=== PATIENT | female | born 1935 | race African-American/Black ===

== ENCOUNTER 2020-02-06 09:34 | Emergency (ER) ==
[2020-02-06 10:45] LABS: #Basophils 0.1 thou/uL (0.0-0.2); #Lymphocytes 1.3 thou/uL (1.20-3.40); #Monocytes 0.4 thou/uL (0.11-0.59); #Neutrophils 3.5 thou/uL (1.40-6.50); %Eosinophils 0.8 % (0.0-10.0); %Lymphocytes 24.2 % (21.0-51.0); %Monocytes 7.8 % (0.0-10.0); %Neutrophils 66.2 % (42.0-75.0); Hemoglobin 11.6 g/dL (12.0-16.0); Mean Corpuscular HGB CONC 31.9 g/dL (32.0-36.0); Mean Corpuscular Hemoglobin 29.5 pg (27.0-31.0); Mean Corpuscular Volume 92.5 fL (78.0-98.0); Mean Platelet Volume 9.1 fL (7.4-10.4); Platelet Count 231 thou/uL (130-400); RBC Distribution Width 13.3 % (11.5-14.5); Red Blood Cell (RBC) Count 3.93 mill/uL (4.20-5.40); White Blood Cell (WBC) Count 5.3 thou/uL (4.8-10.8)
[2020-02-06 11:10] LABS: ALT (SGPT) 12 U/L (8-55); AST (SGOT) 18 U/L (5-34); Albumin 3.8 g/dL (3.4-4.8); Alkaline Phosphatase 77 U/L (40-110); Anion Gap 15 mmol/L (10-20); BUN (Urea Nitrogen) 29 mg/dL (9.8-20.1); Bilirubin, Total 0.4 mg/dL (0.2-1.2); Calc. Creatinine Clearance 0 mL/min (70-130); Carbon Dioxide 26 mmol/L (23-31); Chloride 99 mmol/L (98-107); Estimated GFR-MDRD 50; Globulin 3.3 g/dL (2.4-3.5); Glucose 111 mg/dL (83-110); Potassium 4.4 mmol/L (3.5-5.1); Protein, Total 7.1 g/dL (6.0-8.3); Sodium 136 mmol/L (136-145)
[2020-02-06 11:13] LABS: Bilirubin Negative (Negative); Blood, Urine Negative (Negative); Clarity Clear (Clear); Glucose, Urine (Dipstick) Normal (Negative); Ketone, Urine Negative (Negative); Leukocyte Negative Leu/uL (Negative); Nitrite Negative (Negative); Protein, Urine (Dipstick) Negative (Neg-Trace); Specific Gravity, Urine 1.006 (1.002-1.036); Urobilinogen Normal mg/dL (Less than 2)
--- NOTE | 2020-02-06 11:46 | CT ---
CT BRAIN WITHOUT CONTRAST: HISTORY:Altered mental status FINDINGS: There are foci of decreased attenuation in the periventricular white matter, consistent with chronic small vessel ischemic disease. No evidence of acute infarct, hemorrhage, midline shift or abnormal extra-axial fluid collections is seen. The ventricular size is appropriate and the basilar cisterns are patent. The bony calvarium is intact. There are calcifications in the optic globes. The visualized paranasal sinuses and mastoid air cells are well aerated. IMPRESSION: No CT evidence of acute intracranial process.
== END 2020-02-06 14:25 | disposition home or self-care (01) ==
LOC: EDBD 09:34 → ERS 09:34
DX: F03.90 Unspecified dementia, unspecified severity, without behavioral disturbance, psychotic disturbance, mood disturbance, and anxiety (principal); R41.82 Altered mental status, unspecified; E11.9 Type 2 diabetes mellitus without complications; I10 Essential (primary) hypertension; E78.5 Hyperlipidemia, unspecified; Z79.84 Long term (current) use of oral hypoglycemic drugs; Z79.82 Long term (current) use of aspirin; Z79.899 Other long term (current) drug therapy
CPT/HCPCS: 36415; 51701; 70450; 80053; 81003; 82140; 85025; 93005; 94760

== ENCOUNTER 2020-05-11 18:18 | Inpatient (IN) | payer MEDICARE, SELFPAY ==
--- NOTE | 2020-05-11 19:14 | RAD ---
XR Chest 1 View Portable History: Altered mental status Comparison: Chest radiograph July 03, 2019 Findings: Relative to the prior examination there appears to be improved aeration of the lingula. Sma ll right effusion. No pneumothorax. Extensive midthoracic spine degenerative changes. Impression: 1. Faint residual opacity within the lingula may reflect scar or recurrent pneumonia. 2. Small right pleural effusion.
[2020-05-11 19:52] LABS: #Lymphocytes 0.8 thou/uL (1.20-3.40); #Monocytes 0.4 thou/uL (0.11-0.59); #Neutrophils 4.6 thou/uL (1.40-6.50); %Lymphocytes 13.2 % (21.0-51.0); %Monocytes 7.1 % (0.0-10.0); %Neutrophils 79.7 % (42.0-75.0); Hemoglobin 12.7 g/dL (12.0-16.0); Mean Corpuscular HGB CONC 30.9 g/dL (32.0-36.0); Mean Corpuscular Hemoglobin 28.7 pg (27.0-31.0); Mean Corpuscular Volume 92.6 fL (78.0-98.0); Mean Platelet Volume 9.9 fL (7.4-10.4); Platelet Count 195 thou/uL (130-400); RBC Distribution Width 13.1 % (11.5-14.5); Red Blood Cell (RBC) Count 4.41 mill/uL (4.20-5.40); White Blood Cell (WBC) Count 5.7 thou/uL (4.8-10.8)
[2020-05-11 19:52] LABS: Bacteria/HPF None Seen HPF (None Seen); Bilirubin Negative (Negative); Blood, Urine Negative (Negative); Clarity Clear (Clear); Glucose, Urine (Dipstick) Greater than 1000 mg/dL (Negative); Ketone, Urine 40 mg/dL (Negative); Leukocyte Negative Leu/uL (Negative); Nitrite Negative (Negative); Protein, Urine (Dipstick) 70 mg/dL (Neg-Trace); RBC/HPF 0-3 HPF (0-3); Specific Gravity, Urine 1.023 (1.002-1.036); Squamous Epithelial 0-3 HPF (0-3); Urobilinogen Normal mg/dL (Less than 2); WBC/HPF 0-3 HPF (0-3)
[2020-05-11 19:57] LABS: INR-International Normal Ratio 0.9; PTT 26.1 sec (22.9-36.1); Prothrombin Time 12.2 sec (12.0-14.7)
[2020-05-11 20:07] LABS: ALT (SGPT) 11 U/L (8-55); AST (SGOT) 18 U/L (5-34); Albumin 3.3 g/dL (3.4-4.8); Alkaline Phosphatase 77 U/L (40-110); Anion Gap 22 mmol/L (10-20); BUN (Urea Nitrogen) 20 mg/dL (9.8-20.1); Bilirubin, Total 0.4 mg/dL (0.2-1.2); CK (CPK) 206 U/L (29-168); Calc. Creatinine Clearance 0 mL/min (70-130); Calcium 8.3 mg/dL (7.8-10.44); Carbon Dioxide 19 mmol/L (23-31); Chloride 93 mmol/L (98-107); Globulin 3.7 g/dL (2.4-3.5); Glucose 479 mg/dL (83-110); Potassium 4.4 mmol/L (3.5-5.1); Sodium 130 mmol/L (136-145)
--- NOTE | 2020-05-11 20:41 | CT ---
CT Brain WO Con History: Altered mental status Comparison: CT brain February 06, 2020 Findings: Abnormally hyperdense globes and calcifications bilaterally. Old right parietal infarct. No acute hemorrhage or infarct. No midline shift or mass effect. Impression: Chronic findings. No acute intracranial abnormality.
[2020-05-11] MEDS ORDERED: Insulin Regular 300 UNITS/3 ML VIAL ONE (20:51)
[2020-05-11 21:43] LABS: SARS-CoV-2 NAA Rapid Test DETECTED (NotDetected)
--- NOTE | 2020-05-11 22:14 | PDOC.FPRHP ---
- History of Present Illness Chief Complaint: AMS History of Present Illness: This is an 84yo F with PMH of dementia, DM2, HTN, HLD, blindness who presents to the ER today due to AMS. The patient started having AMS about 3 days ago. She has also had diarrhea over th elast few a days. She has a positive COVID exposure as many family members have tested positive. At baseline, she does normally know where she is and what day it is. She denies chest pain, SOB, numbness, tingling, weakness, NV, abdominal pain, fever, cough or other symptoms at this time. The above was obtained through ER record. Patient not able to give me much more information. Per niece - she got patient up around 12. She ate chicken noodle soup at that time. They laid her down to nap. She went to check on her at 5pm and she had explosive diarrhea. No blood in BM. She is not normally incontinent and can tell you when she needs to go to the bathroom. Both niece and her are positive for COVID. She has not had a fever. She has had decreased appetite over the last week. She gave her 12 u of levemir at 12:30 and at 5:30 gave her 10 more. She normally takes levemir 8u qAM, 8u qPM and if elevated at bedtime she will get 3u of novolog. She has not had a glucose over 400 if many years. She also takes metformin BID. She is normally axox2-3. She said that she did seem more confused today and she was having to repeat her questions more and more today than usual. She will sometimes have a "dementia episode" where she is "mean, mean mean." She takes seroquel at night which has helped this. Niece is taking that she may need to go to a facility for care. Reports weight loss over the last couple months. Niece is MPOA. ED Course: 6units novolin, NS 2000ml bolus - Allergies/Adverse Reactions Allergies Allergy/AdvReac Type Severity Reaction Status Date / Time No Known Allergies Allergy Verified 05/12/20 04:47 - History PMHx: DM2, HTN, HLD, legally blind , dementia PSHx: UTO 02/06/20, eye surgery FHx: DM, HTN; father - prostate cancer; Brother - CKD on dialysis, DM Social: lives at home with niece/nephew, no tobacco use - she did chewing tobacco, but quit about 5 years ago; does not drink alcohol, no drug use - Review of Systems ROS unobtainable: other (per niece, unable to get ROS from patient) General: reports: fatigue. denies: fever/chills, weight/appetite/sleep changes, night sweats Eyes: denies: eye pain, vision changes ENT: denies: nasal congestion, rhinorrhea Respiratory: denies: cough, congestion, shortness of breath Cardiovascular: denies: chest pain, palpitation, edema Gastrointestinal: reports: diarrhea. denies: nausea, vomiting, constipation, abdominal pain, GI bleeding Genitourinary: denies: dysuria Skin: denies: rashes, lesions Musculoskeletal: denies: pain, tenderness, swelling Neurological: reports: weakness - Vital signs BP: 158/63, Pulse: 75, Resp: 16, Temp: 98.2 (Oral), Pain: 0, O2 sat: 95 on (Room Air), Time: 05/11/2020 22:11. Weight 40kg BP: 158/86, Pulse: 85, Resp: 17, Temp: 98.1 (Oral), Pain: 0, O2 sat: 95 on (Room Air), Time: 05/11/2020 18:31. - Physical Exam Constitutional: NAD -Constitutional: frail, elderly AA F HEENT: normocephalic and atraumatic, no scleral icterus, MMM (MM mildly dry) -HEENT: legally blind, cloudy corneas b/l, poor dentition - dentures present, gum or some substance in the mouth Neck: supple, FROM, trachea midline, no LAD Chest: no-tender to palpation, no lesions Heart: RRR, normal S1/S2, no murmurs/rubs/gallops Lungs: CTAB, no respiratory distress, no rales/rhonchi, no wheezing, no retractions -Lungs: poor effort Abdomen: soft, non-tender, bowel sounds present, no masses/distention Musculoskeletal: normal structure Neurological: no focal deficit -Neurological: GCS of 14. Unable to fully assess, will not fully cooperate with neuro exam Skin: no rash/lesions -Skin: decreased skin turgor and delayed cap refill mildly Heme/Lymphatic: no unusual bruising or bleeding, no purpura, no petechia -Psychiatric: Axox1 - to person only, she was slow to responds to questions, requires redi recting as well FMR H&P: Results - Labs Result Diagrams: 05/12/20 06:09 05/12/20 06:09 Lab results: WBC 5.7 thou/uL (4.8-10.8) 05/11/20 19:40 Hgb 12.7 g/dL (12.0-16.0) 05/11/20 19:40 Hct 40.9 % (36.0-47.0) 05/11/20 19:40 MCV 92.6 fL (78.0-98.0) 05/11/20 19:40 Plt Count 195 thou/uL (130-400) 05/11/20 19:40 Neutrophils % 79.7 % (42.0-75.0) H 05/11/20 19:40 Sodium 130 mmol/L (136-145) L 05/11/20 19:40 Potassium 4.4 mmol/L (3.5-5.1) 05/11/20 19:40 Chloride 93 mmol/L (98-107) L 05/11/20 19:40 Carbon Dioxide 19 mmol/L (23-31) L 05/11/20 19:40 BUN 20 mg/dL (9.8-20.1) 05/11/20 19:40 Creatinine 1.18 mg/dL (0.6-1.1) H 05/11/20 19:40 Glucose 479 mg/dL (83-110) H 05/11/20 19:40 Calcium 8.3 mg/dL (7.8-10.44) 05/11/20 19:40 Total Bilirubin 0.4 mg/dL (0.2-1.2) 05/11/20 19:40 AST 18 U/L (5-34) 05/11/20 19:40 ALT 11 U/L (8-55) 05/11/20 19:40 Alkaline Phosphatase 77 U/L (40-110) 05/11/20 19:40 Creatine Kinase 206 U/L (29-168) H 05/11/20 19:40 Serum Total Protein 7.0 g/dL (6.0-8.3) 05/11/20 19:40 Albumin 3.3 g/dL (3.4-4.8) L 05/11/20 19:40 Urine Ketones 40 mg/dL (Negative) A 05/11/20 19:22 Urine Blood Negative (Negative) 05/11/20 19:22 Urine Nitrite Negative (Negative) 05/11/20 19:22 Ur Leukocyte Esterase Negative Kyra/uL (Negative) 05/11/20 19:22 Urine RBC 0-3 HPF (0-3) 05/11/20 19:22 Urine WBC 0-3 HPF (0-3) 05/11/20 19:22 Ur Squamous Epith Cells 0-3 HPF (0-3) 05/11/20 19:22 Urine Bacteria None Seen HPF (None Seen) 05/11/20 19:22 - Radiology Interpretation CT scan - head Status: report reviewed by me (chronic findings - old right parietal infarct, hyperdense globes and calcifications bilaterally. NO acute intracranial abnormality.) Chest x-ray Status: report reviewed by me (faint residual opacity within the lingula that might be scar or recurrent PNA; small right pleural effusion) FMR H&P: A/P - Plan Metabolic acidosis 2/2 acute diarrhea Bicarb 19, Gap of 18. Hx of diarrhea over last couple of days. - Will repeat BMP - Can consider stool studies, but likely diarrhea due to COVID. If it persists can consider stool studies. Will hold metformin for not so as to not exacerbate the diarrhea. - Will give IVF Uncontrolled DM2 with hyperglycemia Glucose 479 -> 344. Gap of 18 ->16. Given 6units of insulin and NS in the ER. A1c of 8.5. - BHB pending, VBG pending. - Will continue to mod SS. Will get q2hr glucose until better controlled. COVID PNA Satting well on RA currently. Pos rapid test. WBC nml, L 0.8. - Other COVID labs pending. Will not trend as patient doing well now, but can trend these labs if she decompensates. - Procal 0.38 - will start azithro - Will continue to monitor VS, tylenol PRN for fever. Does not qualify for any therapies as she is doing well resp-armstrong for now. Patient definitely has the potential to decompensate due to co-morbidities and overall poor health. - Precautions in place Encephalopathy - unsure etiology or if even markedly different from baseline Per niece, patient has dementia and is axox 2 at baseline. Patient was axox1 but had difficulty answering questions during exam. - Possibly encephalopathic due to the above diagnoses. No indication of toxins or medication related encephalopathy. Infectious etiology of COVID. UA neg. Dehydration from diarrhea and decreased appetite. CT brain neg for acute p rocess. No hx of seizure per niece. Na corrects to normal, normal k, low bicarb and chloride. Elevated glucose. LINO present but resolved now. Will continue to monitor mental status. Hyponatremia Na 130 -> correction for hyperglycemia = 136 - nml. HLD - aware, will monitor, continue home meds HTN - aware, continue home meds, monitor VS Dementia - aware, baseline is axox2. Appears at baseline or slightly below. Will continue to monitor. Will frequently orient. Continue home meds. Will also consult CM and palliative care. Family would like senior care placement. Dispo: admit to med, obs PCP: MALATHI Murray Diet: HH/CC Code: DNAR Case discussed with Dr. Serna Addendum - Attending - Attending Attestation Date/Time: 05/11/20 [id number] I personally evaluated the patient and discussed the management with Dr. Costa I agree with the History, Examination, Assessment and Plan documented above with any addition or exceptions noted below. 84 yo female with poorly controlled DM and Dementia now presents with worsening cognitive state and COVID19 infection. Patient less responsive. Unable to answer questions. Dehydrated. Not eating or drinking. Bowel and urinary incontinence. Frequent loose stools. Symptoms present for 3 days. Lives and is cared for by positive COVID19 family members. - Admit to COVID unit. No need for respiratory support at this time. Will trend labs. Treat symptoms. Diarrhea associated with disease state. Treat as needed with prn meds. - Infiltrate on CXR. Procal pending. Will likely add antibiotics. Risk for aspi ration due to age, mental status, and comorbidities. Will monitor closely. - Metabolic encephalopathy. Etiology related to infection and dehydration. Due to underlying dementia very sensitive to changes. Will treat and continue to monitor. Would benefit from sitter to help re-orient but due to COVID not possible. - Demenita. Would hold antipsychotic at this time due to mental state. Was placed due to combative and abussive behavior during periods at home. Patient unable to take care of herself. Needs SNF placement. - Metabolic acidosis. Multi-factorial - dehydration and hypovolemia, hyperglycemia with risk for ketosis, poor intake with increased base towards ketosis. Will correct with IVFs and insulin at this time. Monitor. No significant gap. Will need to follow up with family to discuss care plans. Patient is DNR. Krishna
[2020-05-11] MEDS ORDERED: Bisacodyl 5 MG TAB PO PRN (22:15)
[2020-05-11] MEDS ORDERED: Acetaminophen 650 MG Suppository PR PRN (22:15)
[2020-05-11] MEDS ORDERED: Senokot S 8.6-50 MG TAB PO PRN (22:15)
[2020-05-11] MEDS ORDERED: Bisacodyl 10 MG SUPP PR PRN (22:15)
[2020-05-11] MEDS ORDERED: Calcium Carbonate 500 MG ChewTAB PO PRN (22:15)
[2020-05-11] MEDS ORDERED: Ondansetron PF 4 MG/2 ML Vial IVP PRN (22:15)
[2020-05-11] MEDS ORDERED: Ondansetron ODT 4 MG TAB PO PRN (22:15)
[2020-05-11] MEDS ORDERED: Acetaminophen 325 MG TAB PO PRN (22:15)
[2020-05-12 00:16] LABS: Hemoglobin A1c 8.5 % (4.0-6.0)
[2020-05-12 00:18] LABS: Anion Gap 20 mmol/L (10-20); BUN (Urea Nitrogen) 21 mg/dL (9.8-20.1); Carbon Dioxide 20 mmol/L (23-31); Chloride 97 mmol/L (98-107); Sodium 133 mmol/L (136-145)
[2020-05-12 00:19] LABS: CRP (Inflammatory) 15.04 mg/dL (= or < 0.5); Calc. Creatinine Clearance 0 mL/min (70-130); Calcium 7.9 mg/dL (7.8-10.44); Glucose 365 mg/dL (83-110)
[2020-05-12] MEDS ORDERED: Dextrose 5% in Water 1,000 ML IV PRN (00:26)
[2020-05-12] MEDS ORDERED: Dextrose 50% Abboject 50 ML SYRINGE SLOW IVP PRN (00:26)
[2020-05-12] MEDS: HumaLOG 300 UNITS/3 ML VIAL SC PRN ×2 (01:52→14:43)
[2020-05-12] MEDS: Lactated Ringer's 1,000 ML IV SCH ×2 (01:52→10:42)
[2020-05-12 01:58] LABS: Amphetamine Not Detected (NotDetected); Barbiturates Screen Not Detected (NotDetected); Benzodiazepine Screen Not Detected (NotDetected); Cocaine Metabolite Screen Not Detected (NotDetected); Medtox Control Line Valid? VALID (VALID); Medtox Reader # READER 1; Methadone Not Detected (NotDetected); Methamphetamine Not Detected (NotDetected); Opiate Screen Not Detected (NotDetected); Oxycodone Screen Not Detected (NotDetected); Phencyclidine (PCP) Not Detected (NotDetected); THC/Cannabinoid Screen Not Detected (NotDetected); Tricyclic Screen Not Detected (NotDetected)
[2020-05-12] MEDS ORDERED: Azithromycin 250 MG TAB PO SCH (02:00)
[2020-05-12 04:48] VITALS: BMI 19.7
[2020-05-12 06:17] LABS: Actual Bicarbonate (HCO3v) 22 mEq/L (22-28); Base Excess 1.4 mEq/L (-2.0 to +3.0); Calcium, Ionized (venous) 0.84 mmol/L (1.16-1.32); Chloride (VBG) 100 mmol/L (98-106); Hemoglobin (Hb) 12.8 g/dL (11.7-16.1); Potassium (VBG) 3.85 mmol/L (3.70-5.30); Sodium 128.3 mmol/L (133-146); pH (venous) 7.58 (7.32-7.43)
[2020-05-12 06:38] LABS: #Lymphocytes 0.8 thou/uL (1.20-3.40); #Monocytes 0.4 thou/uL (0.11-0.59); #Neutrophils 3.6 thou/uL (1.40-6.50); %Basophils 0.3 % (0.0-1.0); %Lymphocytes 16.6 % (21.0-51.0); Hemoglobin 11.7 g/dL (12.0-16.0); Mean Corpuscular HGB CONC 31.9 g/dL (32.0-36.0); Mean Corpuscular Hemoglobin 29.1 pg (27.0-31.0); Mean Corpuscular Volume 91.2 fL (78.0-98.0); Mean Platelet Volume 9.3 fL (7.4-10.4); Platelet Count 227 thou/uL (130-400); RBC Distribution Width 13.2 % (11.5-14.5); Red Blood Cell (RBC) Count 4.03 mill/uL (4.20-5.40); White Blood Cell (WBC) Count 4.8 thou/uL (4.8-10.8)
[2020-05-12 06:49] LABS: Lactic Acid 2.1 mmol/L (0.5-2.2)
[2020-05-12 06:52] LABS: Anion Gap 17 mmol/L (10-20); BUN (Urea Nitrogen) 14 mg/dL (9.8-20.1); Calc. Creatinine Clearance 45 mL/min (70-130); Carbon Dioxide 21 mmol/L (23-31); Chloride 99 mmol/L (98-107); Glucose 197 mg/dL (83-110); Potassium 3.9 mmol/L (3.5-5.1); Sodium 133 mmol/L (136-145)
--- NOTE | 2020-05-12 08:34 | PDOC.FM ---
- Subjective Subjective: Patient feeling well and very pleasant. She is AxO x1. Denies pain. Resting comfortably. - Objective MAR Reviewed: Yes Vital Signs & Weight: Vital Signs (12 hours) Temp Pulse Resp BP Pulse Ox 05/12/20 04:00 99.8 F H 81 16 159/71 H 93 L 05/12/20 01:33 97.6 F 81 18 155/70 H 98 Weight Weight 48.988 kg I&O: 05/11/20 05/12/20 05/13/20 06:59 06:59 06:59 Intake Total 900 Balance 900 Result Diagrams: 05/12/20 06:09 05/12/20 06:09 Phys Exam - Physical Examination Constitutional: NAD Respiratory: no wheezing, clear to auscultation bilateral Cardiovascular: RRR Gastrointestinal: soft, non-tender, no distention Musculoskeletal: no edema Psychiatric: normal affect Dx/Plan - Plan Plan: Metabolic acidosis 2/2 acute diarrhea - stool studies today Uncontrolled DM2 with hyperglycemia - space out labs and glucose checks, home meds COVID + infection - diarrhea may be due to covid - continue oral hydration - airborne/contact precautions Encephalopathy - resolved - likely dementia and is at baseline HLD HTN - monitor, continue home meds Dementia - aware, baseline is axox2. Dispo: med, obs. Will also consult CM and palliative care. Family would like shelter placement. PCP: MALATHI Murray Diet: HH/ALEXANDRA Code: DNAR Addendum - Attending - Attending Attestation Date/Time: 05/12/20 0087 I personally evaluated the patient and discussed the management with Dr. Mancuso. I agree with the History, Examination, Assessment and Plan documented above with any addition or exceptions noted below. Patient here with suspected AMS and hypovolemia from diarrhea, possibly due to COVID. Continue supportive care, obtain stool studies. Labs improved from admission. CXR and vitals show no evidence of COVID respiratory complications at this time.
[2020-05-12] MEDS: Amlodipine 10 MG TAB PO SCH (08:39)
[2020-05-12] MEDS: Heparin 5,000 UNITS/ML VIAL SC SCH ×3 (08:40→21:30)
[2020-05-12] MEDS: Folic Acid 1 MG TAB PO SCH (08:40)
[2020-05-12] MEDS: Cholecalciferol 1,000 UNITS (25 MCG) TAB PO SCH (08:40)
[2020-05-12] MEDS: Losartan 25 MG TAB PO SCH (08:40)
[2020-05-12] MEDS: Calcium Carbonate 600 MG + Vit D TAB PO SCH (08:40)
[2020-05-12] MEDS: Aspirin 81 mg Enteric Coated Tablet PO SCH (08:40)
[2020-05-12] MEDS ORDERED: FLU VACC QS2020-21(65YR UP)/PF 240 MCG/0.7 ML SYRINGE IM ONE (09:00)
[2020-05-12] MEDS: Atorvastatin Calcium 40 MG TAB PO SCH (21:30)
--- NOTE | 2020-05-13 05:51 | PDOC.FM ---
- Subjective Subjective: Patient says, "I'm feeling so good this morning. Praise God!" She has not had a BM so stool studies have been unable to be collected. Otherwise, no acute events overnight. Pt denies pain. - Objective MAR Reviewed: Yes Vital Signs & Weight: Vital Signs (12 hours) Temp Pulse Resp BP Pulse Ox 05/12/20 20:00 97.8 F 87 18 158/73 H 95 Weight Weight 48.988 kg I&O: 05/11/20 05/12/20 05/13/20 06:59 06:59 06:59 Intake Total 900 1075 Balance 900 1075 Result Diagrams: 05/13/20 08:34 05/13/20 08:34 Phys Exam - Physical Examination Constitutional: NAD Respiratory: no wheezing, clear to auscultation bilateral Cardiovascular: RRR, no significant murmur Gastrointestinal: soft, non-tender, no distention Musculoskeletal: no edema Psychiatric: normal affect Dx/Plan - Plan Plan: Metabolic acidosis 2/2 acute diarrhea, resolved - stool studies ordered, however diarrhea is now resolved. - may have been due to Covid. Monitor, and if recurs, collect stool studies - continue to monitor hydration status Uncontrolled DM2 with hyperglycemia, improved - continue home meds - last A1C at 8.5% - accuchecks ACHS COVID + infection - continue oral hydration - airborne/contact precautions - no respiratory symptoms; if develops, add steroids and inflammatory markers. Encephalopathy - resolved - has dementia and is at baseline HLD HTN - monitor, continue home meds Dementia - aware, baseline is axox2. Dispo: med, obs. CM working on placement; however, this may prove difficult as facilities are no longer accepting new covid positive patients at this time. Continue discussions with family and CM. We will begin PT/OT here while we wait for placement. PCP: MALATHI Murray Diet: HH/CC Code: DNAR Addendum - Attending - Attending Attestation Date/Time: 05/13/20 0753 I personally evaluated the patient and discussed the management with Dr. Mancuso. I agree with the History, Examination, Assessment and Plan documented above with any addition or exceptions noted below. Patient overall stable. Labs improved, diarrhea improved. Per family, they are u nable to care for her any longer so she will likely be prolonged hospitalization awaiting placement.
[2020-05-13] MEDS: Heparin 5,000 UNITS/ML VIAL SC SCH ×3 (08:04→20:52)
[2020-05-13] MEDS: Folic Acid 1 MG TAB PO SCH (08:05)
[2020-05-13] MEDS: Cholecalciferol 1,000 UNITS (25 MCG) TAB PO SCH (08:05)
[2020-05-13] MEDS: Calcium Carbonate 600 MG + Vit D TAB PO SCH (08:05)
[2020-05-13] MEDS: metFORMIN 500 MG TAB PO SCH ×3 (08:05→17:58)
[2020-05-13] MEDS: Aspirin 81 mg Enteric Coated Tablet PO SCH (08:05)
[2020-05-13] MEDS: Amlodipine 10 MG TAB PO SCH (08:09)
[2020-05-13] MEDS ORDERED: Azithromycin 250 MG TAB PO SCH (09:00)
[2020-05-13] MEDS: Losartan 25 MG TAB PO SCH (09:23)
[2020-05-13 09:31] LABS: #Lymphocytes 0.8 thou/uL (1.20-3.40); #Monocytes 0.3 thou/uL (0.11-0.59); #Neutrophils 3.8 thou/uL (1.40-6.50); %Eosinophils 0.2 % (0.0-10.0); %Lymphocytes 16.3 % (21.0-51.0); %Monocytes 5.6 % (0.0-10.0); Anion Gap 19 mmol/L (10-20); BUN (Urea Nitrogen) 9 mg/dL (9.8-20.1); Calc. Creatinine Clearance 45 mL/min (70-130); Calcium 8.4 mg/dL (7.8-10.44); Carbon Dioxide 23 mmol/L (23-31); Chloride 94 mmol/L (98-107); Glucose 237 mg/dL (83-110); Hemoglobin 12.7 g/dL (12.0-16.0); Mean Corpuscular HGB CONC 31.4 g/dL (32.0-36.0); Mean Corpuscular Hemoglobin 28.2 pg (27.0-31.0); Mean Corpuscular Volume 89.9 fL (78.0-98.0); Mean Platelet Volume 10.1 fL (7.4-10.4); Platelet Count 248 thou/uL (130-400); Potassium 3.4 mmol/L (3.5-5.1); Sodium 133 mmol/L (136-145); White Blood Cell (WBC) Count 4.8 thou/uL (4.8-10.8)
[2020-05-13] MEDS ORDERED: Potassium Chloride 20 MEQ TAB PO SCH (10:30)
[2020-05-13] MEDS: HumaLOG 300 UNITS/3 ML VIAL SC PRN ×2 (11:15→21:12)
--- NOTE | 2020-05-13 11:46 | PDOC.PALCO ---
Palliative Care Consult - Consult Details Requesting Physician: Dr Costa Reason for Consult: goals of care, family support - Pertinent HPI 84 year old female who has a known history of dementia, DM II, blindness, declining functional status. Assist for ADL's. Increase in altered mental status 3 days prior to presentation to the emergency room.She has a known positive COVID exposure in the private home setting. Sudden onset of explosive diarrhea. Secondary to both primary caregivers being Covid + patient was sent to the hospital for further evaluation. Negative for fever. Admitted for further evaluation. Niece/MPOA further relayed that patient has intermittent episodes of agitation/aggression. Seroquel initiated and has mitigated. History further indicated increase in poor appetite/intake. Previously oriented x2 - Pertinent PMH DM 2, HDL, HTN, Legally blind, dementia - Social History Smoking Status: Never smoker (Previously "dipped"" quit 5 year ago) Alcohol Use: none Drug Use History: none Living Situation: with family/parents, other (Lives with neice and nephew) - Medications MAR Reviewed: Yes - Allergies Allergies/Adverse Reactions: Allergies Allergy/AdvReac Type Severity Reaction Status Date / Time No Known Allergies Allergy Verified 05/12/20 04:47 - Subjective Entered room, patient sleeping. Assessment, patient states "praise the lord" multiple times, however is not oriented or able to participate in conversation or assessment. - ROS Non Response: due to mental status - Objective Vital Signs: Vital Signs - Most Recent Temp Pulse Resp BP Pulse Ox 98.3 F 86 16 154/79 H 95 05/13/20 09:28 05/13/20 09:28 05/13/20 09:28 05/13/20 09:28 05/13/20 09:58 Palliative Performance Scale: 30 - Physical Exam Constitutional: cachectic, confusion, ill appearing HEENT: moist MMs Deviation from normal: blind Respiratory: no wheezing, unlabored breathing Cardiovascular: RRR Gastrointestinal: soft, non-tender, positive bowel sounds Musculoskeletal: no edema, diffuse muscle atrophy Neurology: no focal deficits Skin: cap refill <2 seconds Deviation from normal: Dry Deviation from normal: Appears oriented to self - Problem List (1) Metabolic acidosis Code(s): E87.2 - ACIDOSIS Current Visit: Yes Status: Acute (2) COVID-19 Code(s): U07.1 - COVID-19 Current Visit: Yes Status: Acute (3) Palliative care encounter Code(s): Z51.5 - ENCOUNTER FOR PALLIATIVE CARE Current Visit: Yes Status: Acute (4) Dementia Code(s): F03.90 - UNSPECIFIED DEMENTIA WITHOUT BEHAVIORAL DISTURBANCE Current Visit: Yes Status: Acute (5) Declining functional status Code(s): R53.81 - OTHER MALAISE Current Visit: Yes Status: Acute - Plan/Recommendations Plan: Family unable to care for patient currently in home setting, requesting transition to skilled facility. CM attempting to secure a facility that is accepting Covid + patients. Haritha Hauser, who was acting MPOA is requesting to appoint surrogate decision making to one of the patients nephews. Secondary to currently no documentation designating Haritha as MPOA Palliative Care is attempting to gain a consensus of family to designate a surrogate decision maker. After Surrogate decision maker identified Palliative Care will sign off as Goal of Care met and family with adequate support. Please also refer to Palliative Care notes in note section. [45] minutes spent on this encounter with >50% of the time in counseling and coordination of care. Thank you for this very appropriate consult.
[2020-05-13] MEDS: Atorvastatin Calcium 40 MG TAB PO SCH (20:53)
--- NOTE | 2020-05-14 06:26 | PDOC.FM ---
- Subjective Subjective: Spoke with kunal Mg yesterday who said pt started having Covid symptoms on 05/11, on the day of admission. The primary symptom was explosive diarrhea. No acute events overnight. Patient says she ate yesterday but cannot remember what she ate. She is AxO x1 this morning. - Objective MAR Reviewed: Yes Vital Signs & Weight: Vital Signs (12 hours) Temp Pulse Resp BP Pulse Ox 05/14/20 04:00 98.1 F 80 18 107/56 L 94 L 05/14/20 00:00 118/67 05/13/20 20:00 99.2 F 87 17 132/64 95 Weight Weight 48.988 kg I&O: 05/12/20 05/13/20 05/14/20 06:59 06:59 06:59 Intake Total 900 1075 240 Balance 900 1075 240 Result Diagrams: 05/13/20 08:34 05/14/20 06:14 Phys Exam - Physical Examination Constitutional: NAD Respiratory: no wheezing, clear to auscultation bilateral Cardiovascular: RRR, no significant murmur Gastrointestinal: soft, non-tender Musculoskeletal: no edema, pulses present Psychiatric: normal affect (AxO x1) Dx/Plan - Plan Plan: General deconditioning - PT/OT recommend SNU, patient is max assist w/ ADLs - Awaiting placement - added glucerna shakes TID after meals for patient's nutrition COVID + infection - continue oral hydration - airborne/contact precautions - no respiratory symptoms; if develops, add steroids and inflammatory markers. - 1st day of symptoms = 05/11. Continue precautions for 10 days (05/21). Uncontrolled DM2 with hyperglycemia, improved - continue home meds: metformin restarted yesterday - last A1C at 8.5% - accuchecks ACHS - changed diet to CC 1800 kcal/day Encephalopathy - resolved Metabolic acidosis 2/2 acute diarrhea, resolved HLD HTN - monitor, continue home meds Dementia - aware, baseline is axo x2. Dispo: med, inpatient. CM working on placement; however, this may prove difficult as facilities are no longer accepting new covid positive patients at this time. PCP: MALATHI Murray Diet: CC, Supp glucerna shakes TID-PC Code: JAVY Addendum - Attending - Attending Attestation Date/Time: 05/14/20 1042 I personally evaluated the patient and discussed the management with Dr. Vinita rushing. I agree with the History, Examination, Assessment and Plan documented above with any addition or exceptions noted below. Patient stable. She has some lab evidence of volume depletion, will give gentle IVF. Working on placement as family feels unable to care for her any longer. No respiratory effects of COVID at this time, diarrhea resolved.
[2020-05-14 07:26] LABS: Anion Gap 17 mmol/L (10-20); BUN (Urea Nitrogen) 23 mg/dL (9.8-20.1); Calc. Creatinine Clearance 21 mL/min (70-130); Calcium 7.7 mg/dL (7.8-10.44); Carbon Dioxide 22 mmol/L (23-31); Chloride 96 mmol/L (98-107); Glucose 318 mg/dL (83-110); Potassium 4.6 mmol/L (3.5-5.1); Sodium 130 mmol/L (136-145)
[2020-05-14] MEDS: Folic Acid 1 MG TAB PO SCH (08:02)
[2020-05-14] MEDS: Losartan 25 MG TAB PO SCH (08:03)
[2020-05-14] MEDS: Cholecalciferol 1,000 UNITS (25 MCG) TAB PO SCH (08:03)
[2020-05-14] MEDS: metFORMIN 500 MG TAB PO SCH ×2 (08:03→15:54)
[2020-05-14] MEDS: Aspirin 81 mg Enteric Coated Tablet PO SCH (08:03)
[2020-05-14] MEDS: Heparin 5,000 UNITS/ML VIAL SC SCH ×3 (08:03→21:50)
[2020-05-14] MEDS: Calcium Carbonate 600 MG + Vit D TAB PO SCH (08:03)
[2020-05-14] MEDS: Amlodipine 10 MG TAB PO SCH (09:43)
[2020-05-14] MEDS: Lactated Ringer's 1,000 ML IV SCH (11:08)
[2020-05-14] MEDS: HumaLOG 300 UNITS/3 ML VIAL SC PRN ×2 (11:14→15:54)
[2020-05-14] MEDS: Atorvastatin Calcium 40 MG TAB PO SCH (21:50)
[2020-05-15] MEDS: Lactated Ringer's 1,000 ML IV SCH
--- NOTE | 2020-05-15 06:23 | PDOC.FM ---
- Subjective Subjective: Patient only eating 25% of meals or refusing meals at all. Drank 25% of glucerna shake at lunch yesterday. Did not work w/ PT yesterday. Denies pain this AM. - Objective MAR Reviewed: Yes Vital Signs & Weight: Vital Signs (12 hours) Temp Pulse Resp BP Pulse Ox 05/14/20 20:00 98.5 F 76 18 122/67 91 L Weight Weight 48.988 kg I&O: 05/13/20 05/14/20 05/15/20 06:59 06:59 06:59 Intake Total 1075 240 840 Balance 1075 240 840 Result Diagrams: 05/13/20 08:34 05/15/20 05:52 Phys Exam - Physical Examination Constitutional: NAD Respiratory: no wheezing, clear to auscultation bilateral Cardiovascular: RRR, no significant murmur Gastrointestinal: no distention Musculoskeletal: no edema Deviation from normal: AxO x1 Dx/Plan - Plan Plan: General deconditioning - PT/OT recommend SNU, patient is max assist w/ ADLs - Awaiting placement LINO 2/2 poor oral intake - continue gentle IVF today. - strict I/Os COVID + infection - continue oral hydration - airborne/contact precautions - no respiratory symptoms; if develops, add steroids and inflammatory markers. - 1st day of symptoms = 05/11. Continue precautions for 10 days (05/21). Uncontrolled DM2 with hyperglycemia, improved - continue home meds: metformin restarted yesterday - last A1C at 8.5% - accuchecks ACHS Encephalopathy - resolved Metabolic acidosis 2/2 acute diarrhea, resolved HLD HTN - monitor, continue home meds Dementia - aware, baseline is axo x2. Dispo: med, inpatient. CM working on placement; however, this may prove difficult as facilities are no longer accepting new covid positive patients at t his time. PCP: MALATHI Murray Diet: CC, Supp glucerna shakes TID-PC Code: DNAR Addendum - Attending - Attending Attestation Date/Time: 05/15/20 8460 I personally evaluated the patient and discussed the management with Dr. Mancuso. I agree with the History, Examination, Assessment and Plan documented above with any addition or exceptions noted below. Patient stable. Working on placement terminal press operator. No respiratory complaints, diarrhea resolved.
[2020-05-15 06:52] LABS: BUN (Urea Nitrogen) 24 mg/dL (9.8-20.1); Calc. Creatinine Clearance 30 mL/min (70-130); Calcium 8.4 mg/dL (7.8-10.44); Carbon Dioxide 17 mmol/L (23-31); Chloride 101 mmol/L (98-107); Glucose 263 mg/dL (83-110); Potassium 5.1 mmol/L (3.5-5.1); Sodium 133 mmol/L (136-145)
[2020-05-15 06:53] LABS: Anion Gap 20 mmol/L (10-20)
[2020-05-15] MEDS: Losartan 25 MG TAB PO SCH (08:44)
[2020-05-15] MEDS: Aspirin 81 mg Enteric Coated Tablet PO SCH (08:44)
[2020-05-15] MEDS: Amlodipine 10 MG TAB PO SCH (08:44)
[2020-05-15] MEDS: metFORMIN 500 MG TAB PO SCH (08:45)
[2020-05-15] MEDS: Cholecalciferol 1,000 UNITS (25 MCG) TAB PO SCH (08:45)
[2020-05-15] MEDS: Calcium Carbonate 600 MG + Vit D TAB PO SCH (08:45)
[2020-05-15] MEDS: Folic Acid 1 MG TAB PO SCH (08:45)
[2020-05-15] MEDS: Heparin 5,000 UNITS/ML VIAL SC SCH ×2 (08:45→16:14)
[2020-05-15] MEDS ORDERED: Lactated Ringer's 1,000 ML IV SCH (09:08)
[2020-05-15] MEDS: HumaLOG 300 UNITS/3 ML VIAL SC PRN (13:10)
[2020-05-15 16:36] VITALS: BP 137/68; TEMP 97.2
--- NOTE | 2020-05-16 03:50 | DIS ---
DATE OF ADMISSION: 05/11/2020 DATE OF DISCHARGE: 05/15/2020 RESIDENT: Marlee Mancuso MD. ADMITTING ATTENDING: Dr. Serna. DISCHARGE ATTENDING: Dr. Hernandez. CONSULTS: Palliative Care, Physical Therapy. PRIMARY DIAGNOSES: 1. Metabolic acidosis secondary to dehydration and diarrhea, resolved. 2. Hypokalemia, resolved. 3. Hyperglycemia secondary to dehydration and uncontrolled type 2 diabetes, improved. 4. COVID positive state, on precautions until 05/21. SECONDARY DIAGNOSES: 1. Dementia. 2. Hyponatremia, improved. 3. Hyperlipidemia. 4. Hypertension. 5. Blindness. DISCHARGE MEDICATIONS: 1. Amlodipine 10 mg p.o. daily. 2. Aspirin 81 mg p.o. daily. 3. Atorvastatin 40 mg p.o. at night. 4. Calcium D3/magnesium/zinc, vitamin complex once daily. 5. Folic acid 1 mg p.o. daily. 6. Glucagon 1 mg IM p.r.n. for hypoglycemia. 7. Losartan 100 mg p.o. daily. 8. Metformin 1000 mg p.o. b.i.d. with meals. 9. Seroquel 150 mg p.o. at night. DISCONTINUED MEDICATIONS: None. HISTORY OF PRESENT ILLNESS AND HOSPITAL COURSE: This very pleasant and demented 84-year-old female was brought to the emergency department by her family for apparently explosive diarrhea. The patient lives with her niece and nephew who both tested positive for COVID and were both very sick this past week. With the decline in her caregiver's health and her COVID positive status, she was brought to the emergency room. The patient was noted to be in metabolic acidosis and hyperglycemic, which rapidly corrected with IV fluids. With regard to COVID, her only reported symptom was diarrhea. However, the patient had no bowel movements while she was here in the hospital. We therefore could not perform any stool studies for analysis. Although the patient was very pleasant, she did not have much of an appetite. She had only ate about 25% of her meals or refuse meals. Glucerna was started. Physical Therapy worked with her and recommended [facility]. Occupational Therapy could not work with her since she was not able to follow commands due to her dementia. The patient's family was adamant they could not care for her at home any longer and they wish to pursue permanent placement. Due to the patient's COVID positive status, no places were accepting of her at this time. She was accepted at [facility] to swing bed until her isolation precautions can be discontinued on May 21. DISCHARGE INSTRUCTIONS: Discharge location: [facility]. Activity: As tolerated. Diet: Carbohydrate consistent. Supplements: Glucerna shakes. Follow up with primary care provider as needed. Job ID: [id number]
--- NOTE | 2020-05-18 09:02 | PQF ---
CLINICAL DOCUMENTATION CLARIFICATION FORM: Dear : Federico Hernandez Date / Time: 05/18/20 09:02 Please exercise your independent, professional judgment in responding to the clarification form. Clinical indicators are provided on the bottom of this form for your review Please check appropriate box(es): [ ] Sepsis due to Covid19 [ ] Localized infection without sepsis [ ] Other diagnosis, please specify [ ] Unable to determine Physician Signature: Date/Time: For continuity of documentation, please document condition throughout progress notes and discharge summary. Thank You. To be completed by CDI/Coding staff for physician review: Present Clinical Indicators - Signs / Symptoms / Labs Results and Location in Medical Record [x] Covid19 infection DS 05/16 [x] Chest Xray: faint residual opacity within the lingula mat reflect scar or recurrent pneumonia CT of chest 05/11 [x] AMS HP 05/11 [x] Metabolic acidosis HP 05/11 [x] Temp=99.8 Pulse=88 MZ=248/90 Respi=20 Vital Signs 05/12 [x] WBC: 05/11=5.7 05/12=4.8 05/13=4.8 Laboratory 05/11 [x] Lactic: 05/12=2.1 Laboratory 05/12 [x] Procalcitonin: 05/11=0.38 Laboratory 05/11 [x] Blood culture: no growth 5 days Laboratory 05/11 Present Risk Factors Results and Location in Medical Record [x] 84 years old female HP 05/11 [x] DM HP 05/11 [x] Hx chewing tobacco HP 05/11 [x] Cachexia Pallative Consult 05/13 [x] Covid19 infection DS 05/16 Present Treatments Results and Location in Medical Record [x] IVF MAR 05/12 [x] Azithromycin 250mg Oral AUG 14 CDS/Urgent Care Nurse Practitioner Signature: Jeferson Wardkmiani Lee Phone #: [phone] Date/Time: 05/18/2020 This is a permanent part of the Medical Record [facility]
--- NOTE | 2020-05-18 09:05 | PQF ---
CLINICAL DOCUMENTATION CLARIFICATION FORM: Dear : Willow Hinojosa Date / Time: 05/18/2020 09:04 Please exercise your independent, professional judgment in responding to the clarification form. Clinical indicators are provided on the bottom of this form for your review Please check appropriate box(es): [ ] Encephalopathy: Etiology: [ ] Metabolic [ ] Toxic [ ] UTI [ ] Unspecified [ ] Other (please specify) [ ] Other diagnosis, please specify [ ] Unable to determine Physician Signature: Date/Time: For continuity of documentation, please document condition throughout progress notes and discharge summary. Thank You. To be completed by CDI/Coding staff for physician review: Present Clinical Indicators - Signs / Symptoms / Labs Results and Location in Medical Record [x] Acute encephalopathy: unclear etiology possible form infection PN 05/12 [x] The patient was drowsy this morning and moaning and was unable to get a good history from her PN 05/12 [x] patient did not answer any question PN 05/12 [x] She was oriented to month but not year PN 05/12 Present Risk Factors Results and Location in Medical Record [x] 89 years old female ED Notes 05/11 [x] HTN ED Notes 05/11 [x] DM ED Notes 05/11 [x] UTI PN 05/12 Present Treatments Results and Location in Medical Record [x] IVF AUG 14 [x] Rocephin 1gm IV AUG 14 [x] Omnicef 300mg Oral AUG 14 CDS/Swimming Pool Serviceperson Signature: Jeferson Lee Phone #: [phone] Date/Time: 05/18/2020 This is a permanent part of the Medical Record [facility]
--- NOTE | 2020-05-18 09:12 | PQF ---
CLINICAL DOCUMENTATION CLARIFICATION FORM: Dear : Federico Hernandez Date / Time: 05/18/20 09:02 Please exercise your independent, professional judgment in responding to the clarification form. Clinical indicators are provided on the bottom of this form for your review Please check appropriate box(es): [ ] Sepsis due to Covid19 [ ] Localized infection without sepsis [ ] Other diagnosis, please specify [ ] Unable to determine Physician Signature: Date/Time: For continuity of documentation, please document condition throughout progress notes and discharge summary. Thank You. To be completed by CDI/Coding staff for physician review: Present Clinical Indicators - Signs / Symptoms / Labs Results and Location in Medical Record [x] Covid19 infection DS 05/16 [x] Chest Xray: faint residual opacity within the lingula mat reflect scar or recurrent pneumonia CT of chest 05/11 [x] AMS HP 05/11 [x] Metabolic acidosis HP 05/11 [x] Temp=99.8 Pulse=88 GY=822/90 Respi=20 Vital Signs 05/12 [x] WBC: 05/11=5.7 05/12=4.8 05/13=4.8 Laboratory 05/11 [x] Lactic: 05/12=2.1 Laboratory 05/12 [x] Procalcitonin: 05/11=0.38 Laboratory 05/11 [x] Blood culture: no growth 5 days Laboratory 05/11 Present Risk Factors Results and Location in Medical Record [x] 84 years old female HP 05/11 [x] DM HP 05/11 [x] Hx chewing tobacco HP 05/11 [x] Cachexia Pallative Consult 05/13 [x] Covid19 infection DS 05/16 Present Treatments Results and Location in Medical Record [x] IVF MAR 05/12 [x] Azithromycin 250mg Oral AUG 14 CDS/Oil Expeller Operator Signature: Jeferson Wardkimani Lee Phone #: [phone] Date/Time: 05/18/2020 This is a permanent part of the Medical Record [facility]
--- NOTE | 2020-05-23 10:57 | EKG ---
Test Reason : Blood Pressure : / mmHG Vent. Rate : 087 BPM Atrial Rate : 087 BPM P-R Int : 146 ms QRS Dur : 070 ms QT Int : 358 ms P-R-T Axes : 000 -19 147 degrees QTc Int : 430 ms Normal sinus rhythm T wave abnormality, consider lateral ischemia Abnormal ECG Confirmed by ELIE RENO DO ([id number]), image editor MARJ ABRAHAM ([id number]) on 05/23/2020 10:57:41 AM Referred By: Confirmed By:ELIE RENO DO
== END 2020-05-15 16:39 | disposition swing bed (61) | DRG 177 ==
LOC: ERS 18:18 → T4-B 22:16
PROVIDERS: ADMIT Student in an Organized Health Care Education/Training Program; ATTEND Student in an Organized Health Care Education/Training Program
DX: U07.1 COVID-19 (principal); G93.41 Metabolic encephalopathy; Z51.5 Encounter for palliative care; Z66 Do not resuscitate; E87.1 Hypo-osmolality and hyponatremia; R64 Cachexia; E87.2 Acidosis; Z68.1 Body mass index [BMI] 19.9 or less, adult; E86.0 Dehydration; F03.90 Unspecified dementia, unspecified severity, without behavioral disturbance, psychotic disturbance, mood disturbance, and anxiety; E11.65 Type 2 diabetes mellitus with hyperglycemia; I10 Essential (primary) hypertension; E78.5 Hyperlipidemia, unspecified; H54.7 Unspecified visual loss; E86.1 Hypovolemia; R19.7 Diarrhea, unspecified; E87.6 Hypokalemia; Z79.82 Long term (current) use of aspirin; Z87.891 Personal history of nicotine dependence; Z79.899 Other long term (current) drug therapy
CPT/HCPCS: 36415; 36416; 51701; 70450; 71045; 80048; 80053; 80306; 81003; 81015; 82010; 82550; 82728; 82805; 83036; 83605; 83615; 83735; 84145; 84443; 84484; 85025; 85379; 85610; 85730; 86140; 87040; 87086; 93005; 96374; J1644; J1815; U0002